=== PATIENT | male | born 1965 | race American Indian/Alaskan Native ===

== ENCOUNTER 2024-02-07 10:56 | Inpatient (IN) ==
[2024-02-07 11:50] LABS: Basophils # (Auto) 0.06 K/mcL (0.00-0.30); Basophils % (Auto) 0.8 % (0.0-2.0); Eosinophils # (Auto) 0.21 K/mcL (0.00-0.70); Eosinophils % (Auto) 2.7 % (0.0-7.0); Hematocrit 39.3 % (40.1-51.0); Hemoglobin 11.9 g/dL (13.7-17.5); Lymphocytes # (Auto) 1.72 K/mcL (1.50-4.80); Lymphocytes % (Auto) 21.7 % (15.5-49.0); Mean Corpuscular HGB Conc 30.3 g/dL (31.0-36.0); Mean Platelet Volume 10.9 fL (8.8-12.5); Monocytes % (Auto) 8.8 % (1.0-12.0); Neutrophils % (Auto) 65.4 % (38.0-78.0); Platelet Count 172 K/mcL (140-440); RBC 4.57 M/mcL (4.63-6.08); Red Cell Distribution Width 14.9 % (11.5-14.5); WBC 7.9 K/mcL (4.5-11.0)
[2024-02-07] MEDS: 0.9 % SODIUM CHLORIDE 1,000 ML IV ONE ×2 (12:00→15:07)
[2024-02-07 13:07] LABS: Appearance,Urine Clear (Clear); Bilirubin,Urine Negative (Negative); Color,Urine Yellow; Culture Indicated,Urine No; Glucose,Urine (UA) 100 mg/dL (Negative); Ketones,Urine Negative (Negative); Leukocyte Esterase,Urine Negative /uL (Negative); Nitrate,Urine Negative (Negative); Protein,Urine Negative (Negative); Specific Gravity,Urine 1.015 (1.000-1.035); Urine Blood Negative ery/mcL (Negative); Urine RBC 1 /hpf (0-3); Urine Squamous Epithelial Cell 0 /hpf (0-4); Urine WBC 1 /hpf (0-4); Urobilinogen,Urine Normal
[2024-02-07 13:50] LABS: ALT/SGPT 23 U/L (<40); AST/SGOT 50 U/L (<40); Albumin 3.6 gm/dL (3.2-5.2); Albumin/Globulin Ratio 1.1 (1.0-2.3); Alkaline Phosphatase 91 U/L (39-117); Bilirubin,Total 0.4 mg/dL (0.1-1.0); Blood Urea Nitrogen 43 mg/dL (6-20); Calcium 8.7 mg/dL (8.6-10.4); Carbon Dioxide 25 mmol/L (22-30); Chloride 98 mmol/L (96-108); Globulin 3.3 gm/dL (2.2-3.7); Glomerular Filtration Rate 32; Glucose 243 mg/dL (70-105); Thyroid Stimulating Hormone 2.32 uIU/mL (0.27-5.01)
[2024-02-07 15:07] LABS: Basophils # (Auto) 0.04 K/mcL (0.00-0.30); Basophils % (Auto) 0.5 % (0.0-2.0); Eosinophils % (Auto) 2.4 % (0.0-7.0); Hematocrit 40.7 % (40.1-51.0); Lymphocytes # (Auto) 1.68 K/mcL (1.50-4.80); Lymphocytes % (Auto) 20.1 % (15.5-49.0); Mean Cell Volume 87.2 fL (80.0-100.0); Mean Corpuscular HGB Conc 29.5 g/dL (31.0-36.0); Mean Platelet Volume 10.5 fL (8.8-12.5); Monocytes # (Auto) 0.76 K/mcL (0.10-0.90); Monocytes % (Auto) 9.1 % (1.0-12.0); Neutrophils % (Auto) 67.3 % (38.0-78.0); Platelet Count 176 K/mcL (140-440); RBC 4.67 M/mcL (4.63-6.08); Red Cell Distribution Width 14.8 % (11.5-14.5); WBC 8.4 K/mcL (4.5-11.0)
[2024-02-07 15:18] LABS: ABG Methemoglobin 0.2 % (0.4-1.5); Total Hemoglobin 12.4 gm/Dl (13.5-16.5); VBG Base Excess 0 (-2-3); VBG HCO3 26.5 mmol/L (24.0-28.0); VBG Oxygen Saturation 84.1 % (40.0-70.0); VBG PCO2 52.9 mmHg (41.0-51.0); VBG PH 7.32 U (7.32-7.42); VBG PO2 61.6 mmHg (25.0-40.0); VBG Total CO2 28.1 mmol/L (25.0-29.0)
[2024-02-07 15:26] LABS: Alcohol, Blood < 10.1 mg/dL; Alcohol,Blood < 0.010 gm/dL (<0.010)
[2024-02-07 15:27] LABS: Blood Urea Nitrogen 42 mg/dL (6-20); Calcium 8.5 mg/dL (8.6-10.4); Carbon Dioxide 27 mmol/L (22-30); Chloride 101 mmol/L (96-108); Glomerular Filtration Rate 36; Glucose 316 mg/dL (70-105)
[2024-02-07] MEDS: INSULIN REGULAR, HUMAN 1 UNIT/0.01 ML UNIT IV ONE (15:44)
[2024-02-07] MEDS: CALCIUM GLUCONATE 9.3 MEQ in DEXTROSE 5% IN WATER 50 ML IV ONE (18:00)
[2024-02-07] MEDS: CALCIUM GLUCONATE 4.65 MEQ/10 ML VIAL IV ONE (18:00)
[2024-02-07] MEDS ORDERED: DEXTROSE 50% 50 ML VIAL IV PRN (18:48)
[2024-02-07] MEDS ORDERED: DEXTROSE 31 GM ORAL.SUSP PO PRN (18:48)
[2024-02-07] MEDS ORDERED: ONDANSETRON 4 MG/2 ML VIAL IV PRN (18:48)
[2024-02-07] MEDS ORDERED: ACETAMINOPHEN 325 MG TABLET PO PRN (18:48)
[2024-02-07] MEDS ORDERED: IPRATROPIUM/ALBUTEROL 3 ML AMPUL.NEB NEB PRN ×2 (18:48→19:45)
[2024-02-07] MEDS: 0.9 % SODIUM CHLORIDE 1,000 ML IV SCH (19:36)
[2024-02-07] MEDS ORDERED: hydrOXYzine 25 MG TABLET PO PRN (19:40)
[2024-02-07] MEDS ORDERED: DICLOFENAC SODIUM 1% TOPICAL PRN (19:40)
[2024-02-07] MEDS ORDERED: ALBUTEROL SULFATE 60 PUFF INHALER IH PRN (19:40)
[2024-02-07] MEDS: INSULIN LISPRO 1 UNIT/0.01 ML UNIT SQ SCH (19:41)
[2024-02-07] MEDS: BACLOFEN 10 MG TABLET PO PRN (20:42)
[2024-02-07] MEDS: HYDROcodone/APAP 10/325MG TABLET PO PRN (20:42)
[2024-02-07] MEDS: FAMOTIDINE 20 MG TABLET PO SCH (20:44)
[2024-02-07] MEDS: MONTELUKAST 10 MG TABLET PO SCH (20:44)
[2024-02-07] MEDS: traZODone HCL 50 MG TABLET PO PRN (20:45)
[2024-02-07] MEDS: FENOFIBRATE 43 MG CAPSULE PO SCH (20:45)
[2024-02-07] MEDS: GABAPENTIN 400 MG CAPSULE PO SCH (20:45)
[2024-02-07] MEDS: morphine 30 MG TAB.SR.12H PO SCH (20:45)
[2024-02-07] MEDS: IPRATROPIUM BROMIDE INH SCH (20:46)
[2024-02-07] MEDS: DOCUSATE SODIUM 100 MG CAPSULE PO SCH (20:48)
[2024-02-07] MEDS: INSULIN GLARGINE, HUMAN 1 UNIT/0.01 ML SQ SCH (20:48)
[2024-02-07] MEDS: LIDOCAINE 5% OINT TUBE 35GM TOPICAL SCH (20:49)
[2024-02-07] MEDS: CLOTRIMAZOLE CRM 1% 1 DOSE TUBE TOPICAL SCH (20:51)
[2024-02-07] MEDS: SENNOSIDES 1 TABLET PO SCH (20:51)
[2024-02-07] MEDS: LIPASE/PROTEASE/AMYLASE 1 CAP CAPSULE PO SCH (20:53)
[2024-02-07] MEDS ORDERED: [UNRECOGNIZED DRUG - OTHER] PO SCH (21:00)
[2024-02-07] MEDS ORDERED: [UNRECOGNIZED DRUG - OTHER] PO SCH (21:00)
[2024-02-07] MEDS ORDERED: OMEGA ACID ETHYL ESTERS PO SCH (21:00)
[2024-02-07] MEDS: ATORVASTATIN 20 MG TABLET PO SCH (21:04)
[2024-02-07] MEDS: HEPARIN 5,000 UNIT/ML VIAL SQ SCH (21:07)
[2024-02-07] MEDS: 0.9 % SODIUM CHLORIDE 10 ML SYRINGE IV SCH (22:27)
[2024-02-07 23:10] LABS: Amphetamine Screen,Urine None detected; Barbiturate Screen,Urine None detected; Benzodiazepines Screen,Urine None detected; Cannabinoid Screen,Urine None detected; Cocaine Screen,Urine None detected; Opiate Screen,Urine Suspect Positive; Oxycodone, Urine Screen None detected; Phencyclidine Screen,Urine None detected
[2024-02-08 06:22] LABS: Basophils # (Auto) 0.04 K/mcL (0.00-0.30); Basophils % (Auto) 0.6 % (0.0-2.0); Eosinophils # (Auto) 0.17 K/mcL (0.00-0.70); Eosinophils % (Auto) 2.5 % (0.0-7.0); Hematocrit 38.2 % (40.1-51.0); Hemoglobin 11.6 g/dL (13.7-17.5); Lymphocytes # (Auto) 1.98 K/mcL (1.50-4.80); Lymphocytes % (Auto) 28.6 % (15.5-49.0); Mean Cell Volume 85.8 fL (80.0-100.0); Mean Corpuscular HGB Conc 30.4 g/dL (31.0-36.0); Mean Platelet Volume 10.6 fL (8.8-12.5); Monocytes # (Auto) 0.57 K/mcL (0.10-0.90); Monocytes % (Auto) 8.2 % (1.0-12.0); Neutrophils % (Auto) 59.4 % (38.0-78.0); Platelet Count 165 K/mcL (140-440); RBC 4.45 M/mcL (4.63-6.08); WBC 6.9 K/mcL (4.5-11.0)
[2024-02-08 06:44] LABS: ALT/SGPT 21 U/L (<40); AST/SGOT 35 U/L (<40); Albumin 3.7 gm/dL (3.2-5.2); Albumin/Globulin Ratio 1.3 (1.0-2.3); Alkaline Phosphatase 84 U/L (39-117); Bilirubin,Total 0.6 mg/dL (0.1-1.0); Blood Urea Nitrogen 38 mg/dL (6-20); Calcium 8.6 mg/dL (8.6-10.4); Carbon Dioxide 30 mmol/L (22-30); Chloride 101 mmol/L (96-108); Globulin 2.9 gm/dL (2.2-3.7); Glomerular Filtration Rate 47; Glucose 399 mg/dL (70-105)
[2024-02-08 07:53] LABS: Estimated Average Glucose(eAG) 183 mg/dL
[2024-02-08] MEDS: DULoxetine 30 MG CAPSULE PO SCH (08:16)
[2024-02-08] MEDS: LORATADINE 10 MG TABLET PO SCH (08:16)
[2024-02-08] MEDS: IRON POLYSACCHARIDE COMPLEX 150 MG CAPSULE PO SCH (08:16)
[2024-02-08] MEDS: DILTIAZEM 240 MG CAP.XL.24H PO SCH (08:16)
[2024-02-08] MEDS: ALOGLIPTIN 6.25 MG PO SCH (08:17)
[2024-02-08] MEDS: MULTIVIT,THER IRON,CA,FA & MIN 1 TABLET PO SCH (08:17)
[2024-02-08] MEDS: CYANOCOBALAMIN (VITAMIN B-12) 500 MCG TABLET PO SCH (08:17)
[2024-02-08] MEDS: BISOPROLOL 5 MG TABLET PO SCH (08:17)
[2024-02-08] MEDS: VITAMIN D3 125 MCG TABLET PO SCH (08:17)
[2024-02-08] MEDS: FLUTICASONE PROPIONATE SPRAY.NAS NS SCH (08:17)
[2024-02-08] MEDS ORDERED: DEXTROSE 50% 50 ML VIAL IV PRN (11:18)
[2024-02-08] MEDS ORDERED: DEXTROSE 31 GM ORAL.SUSP PO PRN (11:18)
[2024-02-08] MEDS: INSULIN LISPRO 1 UNIT/0.01 ML UNIT SQ SCH (11:36)
[2024-02-08] MEDS ORDERED: IPRATROPIUM BROMIDE INH PRN (14:57)
[2024-02-08] MEDS: HEPARIN 5,000 UNIT/ML VIAL SQ SCH (21:15)
[2024-02-09 06:13] LABS: Basophils # (Auto) 0.07 K/mcL (0.00-0.30); Eosinophils # (Auto) 0.24 K/mcL (0.00-0.70); Eosinophils % (Auto) 3.3 % (0.0-7.0); Hematocrit 39.5 % (40.1-51.0); Lymphocytes # (Auto) 2.69 K/mcL (1.50-4.80); Lymphocytes % (Auto) 36.5 % (15.5-49.0); Mean Cell Volume 84.8 fL (80.0-100.0); Mean Corpuscular HGB Conc 30.4 g/dL (31.0-36.0); Mean Platelet Volume 10.3 fL (8.8-12.5); Monocytes # (Auto) 0.74 K/mcL (0.10-0.90); Monocytes % (Auto) 10.1 % (1.0-12.0); Neutrophils % (Auto) 48.4 % (38.0-78.0); Platelet Count 177 K/mcL (140-440); RBC 4.66 M/mcL (4.63-6.08); Red Cell Distribution Width 14.9 % (11.5-14.5); WBC 7.4 K/mcL (4.5-11.0)
[2024-02-09 06:58] LABS: ALT/SGPT 17 U/L (<40); AST/SGOT 33 U/L (<40); Albumin 3.7 gm/dL (3.2-5.2); Albumin/Globulin Ratio 1.1 (1.0-2.3); Alkaline Phosphatase 88 U/L (39-117); Bilirubin,Total 0.5 mg/dL (0.1-1.0); Blood Urea Nitrogen 26 mg/dL (6-20); Calcium 8.9 mg/dL (8.6-10.4); Carbon Dioxide 25 mmol/L (22-30); Chloride 100 mmol/L (96-108); Globulin 3.3 gm/dL (2.2-3.7); Glomerular Filtration Rate 67; Glucose 312 mg/dL (70-105)
[2024-02-09] MEDS: ALOGLIPTIN 25 MG PO SCH (08:48)
[2024-02-09] MEDS: ENOXAPARIN 40 MG/0.4 ML SYRINGE SQ SCH (21:24)
[2024-02-10 06:18] LABS: Basophils # (Auto) 0.04 K/mcL (0.00-0.30); Basophils % (Auto) 0.6 % (0.0-2.0); Eosinophils # (Auto) 0.27 K/mcL (0.00-0.70); Eosinophils % (Auto) 3.9 % (0.0-7.0); Hematocrit 36.4 % (40.1-51.0); Hemoglobin 11.2 g/dL (13.7-17.5); Lymphocytes # (Auto) 2.36 K/mcL (1.50-4.80); Lymphocytes % (Auto) 34.3 % (15.5-49.0); Mean Cell Volume 85.2 fL (80.0-100.0); Mean Corpuscular HGB Conc 30.8 g/dL (31.0-36.0); Mean Platelet Volume 10.5 fL (8.8-12.5); Monocytes # (Auto) 0.56 K/mcL (0.10-0.90); Monocytes % (Auto) 8.1 % (1.0-12.0); Neutrophils % (Auto) 52.5 % (38.0-78.0); Platelet Count 161 K/mcL (140-440); RBC 4.27 M/mcL (4.63-6.08); Red Cell Distribution Width 14.7 % (11.5-14.5); WBC 6.9 K/mcL (4.5-11.0)
[2024-02-10 07:00] LABS: ALT/SGPT 15 U/L (<40); AST/SGOT 29 U/L (<40); Albumin 3.4 gm/dL (3.2-5.2); Albumin/Globulin Ratio 1.1 (1.0-2.3); Alkaline Phosphatase 72 U/L (39-117); Bilirubin,Total 0.4 mg/dL (0.1-1.0); Blood Urea Nitrogen 18 mg/dL (6-20); Calcium 8.6 mg/dL (8.6-10.4); Carbon Dioxide 26 mmol/L (22-30); Chloride 105 mmol/L (96-108); Globulin 3.1 gm/dL (2.2-3.7); Glomerular Filtration Rate 83; Glucose 223 mg/dL (70-105)
[2024-02-14] MEDS ORDERED: ERGOCALCIFEROL (VITAMIN D2) 50,000 UNIT CAPSULE PO SCH (09:00)
[2024-02-14 15:08] LABS: Opiate Screen Positive ng/mL (Cutoff=300)
== END 2024-02-10 15:34 | disposition home or self-care (01) | DRG 640 ==
LOC: MEDSUR 10:56 → ED 10:56 → MEDSUR 18:38
PROVIDERS: ADMIT Internal Medicine; ATTEND Internal Medicine

== ENCOUNTER 2024-05-03 16:16 | Inpatient (IN) ==
[2024-05-03 18:14] LABS: Basophils # (Auto) 0.02 K/mcL (0.00-0.30); Basophils % (Auto) 0.2 % (0.0-2.0); Eosinophils # (Auto) 0.11 K/mcL (0.00-0.70); Hematocrit 38.8 % (40.1-51.0); Lymphocytes # (Auto) 1.49 K/mcL (1.50-4.80); Lymphocytes % (Auto) 13.2 % (15.5-49.0); Mean Cell Volume 83.8 fL (80.0-100.0); Mean Corpuscular HGB Conc 30.9 g/dL (31.0-36.0); Mean Platelet Volume 10.8 fL (8.8-12.5); Monocytes # (Auto) 1.24 K/mcL (0.10-0.90); Neutrophils % (Auto) 74.2 % (38.0-78.0); Platelet Count 180 K/mcL (140-440); RBC 4.63 M/mcL (4.63-6.08); Red Cell Distribution Width 15.1 % (11.5-14.5); WBC 11.3 K/mcL (4.5-11.0)
[2024-05-03 18:41] LABS: ALT/SGPT 14 U/L (<40); AST/SGOT 37 U/L (<40); Albumin 3.6 gm/dL (3.2-5.2); Albumin/Globulin Ratio 0.9 (1.0-2.3); Alkaline Phosphatase 97 U/L (39-117); Bilirubin,Total 0.4 mg/dL (0.1-1.0); Blood Urea Nitrogen 64 mg/dL (6-20); Calcium 11.1 mg/dL (8.6-10.4); Carbon Dioxide 22 mmol/L (22-30); Chloride 93 mmol/L (96-108); Globulin 3.8 gm/dL (2.2-3.7); Glomerular Filtration Rate 12; Glucose 272 mg/dL (70-105); Potassium 4.4 mmol/L (3.3-5.1); Sodium 131 mmol/L (133-145)
[2024-05-03 18:49] LABS: Free T4 (Free Thyroxine) 1.51 ng/dL (0.93-1.70)
[2024-05-03] MEDS: 0.9 % SODIUM CHLORIDE 1,000 ML IV SCH (19:38)
[2024-05-03 21:21] LABS: ABG Methemoglobin 0.3 % (0.4-1.5); Total Hemoglobin 12.3 gm/Dl (13.5-16.5); VBG Base Excess -2 (-2-3); VBG HCO3 22.9 mmol/L (24.0-28.0); VBG Oxygen Saturation 92.5 % (40.0-70.0); VBG PH 7.37 U (7.32-7.42); VBG PO2 120.1 mmHg (25.0-40.0); VBG Total CO2 24.2 mmol/L (25.0-29.0)
[2024-05-03] MEDS: BENZOCAINE ONE 20% 1 SPRAY TOPICAL (22:34)
[2024-05-03] MEDS ORDERED: DEXTROSE 50% 50 ML VIAL IV PRN (23:30)
[2024-05-03] MEDS ORDERED: MAGNESIUM SULFATE 2 GM/50 ML BAG IV PRN (23:30)
[2024-05-03] MEDS ORDERED: POLYETHYLENE GLYCOL 3350 17 GM PACKET PO PRN (23:30)
[2024-05-03] MEDS ORDERED: ACETAMINOPHEN 325 MG TABLET PO PRN (23:30)
[2024-05-03] MEDS ORDERED: POTASSIUM CHLORIDE 40 MEQ in DEXTROSE 5% IN WATER 500 ML IV PRN (23:30)
[2024-05-03] MEDS ORDERED: POTASSIUM CHLORIDE 20 MEQ TABLET PO PRN ×2 (23:30)
[2024-05-03] MEDS ORDERED: ONDANSETRON 4 MG/2 ML VIAL IV PRN (23:30)
[2024-05-03] MEDS ORDERED: DEXTROSE 31 GM ORAL.SUSP PO PRN (23:30)
[2024-05-03] MEDS ORDERED: SENNOSIDES 1 TABLET PO PRN (23:30)
[2024-05-04 00:06] LABS: Hemoglobin A1C 8.4 % Hgb (4.0-6.0)
[2024-05-04] MEDS: 0.9 % SODIUM CHLORIDE 1,000 ML IV SCH (00:09)
[2024-05-04] MEDS: cefTRIAXone 2 GM in DEXTROSE 5% IN WATER 50 ML IV SCH (00:09)
[2024-05-04] MEDS: 0.9 % SODIUM CHLORIDE 10 ML SYRINGE IV SCH (00:12)
[2024-05-04] MEDS: cefTRIAXone 2 GM VIAL ONE (00:22)
[2024-05-04 00:53] LABS: Appearance,Urine Clear (Clear); Bilirubin,Urine Negative (Negative); Color,Urine Yellow; Culture Indicated,Urine No; Glucose,Urine (UA) Negative (Negative); Ketones,Urine Negative (Negative); Leukocyte Esterase,Urine Negative /uL (Negative); Nitrate,Urine Negative (Negative); Other Crystals,Urine Few /hpf; PH,Urine 5.5 (5.0-9.0); Protein,Urine Negative (Negative); Urine Blood Trace-intact ery/mcL (Negative); Urine Hyaline Cast 34 /lph (0-2); Urine RBC 3 /hpf (0-3); Urine Squamous Epithelial Cell 1 /hpf (0-4); Urine WBC 1 /hpf (0-4); Urobilinogen,Urine Normal
[2024-05-04] MEDS: HALOPERIDOL LACTATE 5 MG/ML VIAL IV ONE (05:39)
[2024-05-04] MEDS: LORazepam 2 MG/ML VIAL IV PRN (05:56)
[2024-05-04] MEDS: LORazepam 2 MG/ML VIAL ONE (05:57)
[2024-05-04] MEDS: HALOPERIDOL LACTATE 5 MG/ML VIAL ONE (05:57)
[2024-05-04] MEDS: DEXMEDETOMIDINE 400 MCG in PREMIX 1 BAG IV SCH (06:04)
[2024-05-04] MEDS: DEXMEDETOMIDINE 100 ML IV ONE (06:08)
[2024-05-04] MEDS: VANCOMYCIN PER PHARMACY IV ONE (06:23)
[2024-05-04] MEDS: INSULIN LISPRO 1 UNIT/0.01 ML UNIT SQ SCH (06:53)
[2024-05-04 07:33] LABS: Basophils # (Auto) 0.02 K/mcL (0.00-0.30); Basophils % (Auto) 0.2 % (0.0-2.0); Eosinophils # (Auto) 0.21 K/mcL (0.00-0.70); Eosinophils % (Auto) 2.5 % (0.0-7.0); Hematocrit 36.8 % (40.1-51.0); Hemoglobin 11.7 g/dL (13.7-17.5); Lymphocytes # (Auto) 1.79 K/mcL (1.50-4.80); Lymphocytes % (Auto) 21.4 % (15.5-49.0); Mean Cell Volume 81.2 fL (80.0-100.0); Mean Corpuscular HGB Conc 31.8 g/dL (31.0-36.0); Mean Platelet Volume 11.2 fL (8.8-12.5); Monocytes # (Auto) 0.89 K/mcL (0.10-0.90); Monocytes % (Auto) 10.7 % (1.0-12.0); Neutrophils % (Auto) 64.7 % (38.0-78.0); Platelet Count 183 K/mcL (140-440); RBC 4.53 M/mcL (4.63-6.08); WBC 8.4 K/mcL (4.5-11.0)
[2024-05-04] MEDS: 0.9 % SODIUM CHLORIDE 500 ML IV ONE ×2 (09:09→10:59)
[2024-05-04] MEDS: PANTOPRAZOLE 40 MG VIAL IV SCH (10:05)
[2024-05-04] MEDS: ENOXAPARIN 40 MG/0.4 ML SYRINGE SQ SCH (10:05)
[2024-05-04 10:30] LABS: ALT/SGPT 13 U/L (<40); AST/SGOT 49 U/L (<40); Albumin 3.1 gm/dL (3.2-5.2); Alkaline Phosphatase 89 U/L (39-117); Bilirubin,Direct 0.2 mg/dL (<0.3); Bilirubin,Total 0.3 mg/dL (0.1-1.0); Blood Urea Nitrogen 75 mg/dL (6-20); Carbon Dioxide 23 mmol/L (22-30); Chloride 100 mmol/L (96-108); Globulin 3.2 gm/dL (2.2-3.7); Glomerular Filtration Rate 11; Glucose 298 mg/dL (70-105); Lactate Dehydrogenase 173 U/L (135-225); Phosphorous 8.6 mg/dL (2.5-4.5); Sodium 137 mmol/L (133-145); Triglycerides 227 mg/dL (<150); Uric Acid 10.6 mg/dL (2.5-8.0)
[2024-05-04] MEDS: LIPASE/PROTEASE/AMYLASE 1 CAP CAPSULE PO SCH (11:54)
[2024-05-04] MEDS: DOCUSATE SODIUM 100 MG CAPSULE PO SCH (11:55)
[2024-05-04] MEDS: CLOTRIMAZOLE CRM 1% 1 DOSE TUBE TOPICAL SCH (12:05)
[2024-05-04] MEDS: BETAMETHASONE VAL 0.1% TOPICAL SCH (12:06)
[2024-05-04] MEDS: CLOTRIMAZOLE/BETAMETHASONE DIP 45 GM CREAM..G. TP SCH (12:17)
[2024-05-04] MEDS: BISOPROLOL FUMARATE 10 MG PO SCH (12:18)
[2024-05-04 15:18] LABS: ABG Methemoglobin 0.3 % (0.4-1.5); Total Hemoglobin 10.9 gm/Dl (13.5-16.5); VBG Base Excess -4 (-2-3); VBG HCO3 22.4 mmol/L (24.0-28.0); VBG Oxygen Saturation 88.3 % (40.0-70.0); VBG PCO2 48.2 mmHg (41.0-51.0); VBG PH 7.29 U (7.32-7.42); VBG PO2 73.5 mmHg (25.0-40.0); VBG Total CO2 23.9 mmol/L (25.0-29.0)
[2024-05-04] MEDS ORDERED: ROSUVASTATIN 10 MG TABLET PO SCH (21:00)
[2024-05-04] MEDS ORDERED: TAMSULOSIN 0.4 MG CAPSULE PO SCH (21:00)
[2024-05-04] MEDS ORDERED: ENOXAPARIN 60 MG/0.6 ML SYRINGE SQ SCH (21:00)
[2024-05-04] MEDS ORDERED: RABEPRAZOLE 20 MG PO SCH (21:00)
[2024-05-04] MEDS ORDERED: [UNRECOGNIZED DRUG - OTHER] PO SCH (21:00)
[2024-05-04] MEDS: QUEtiapine 25 MG TABLET PO SCH (21:11)
[2024-05-04] MEDS: ATORVASTATIN 20 MG TABLET PO SCH (21:11)
[2024-05-04] MEDS: TAMSULOSIN 0.4 MG CAPSULE PO SCH (21:11)
[2024-05-05] MEDS: HEPARIN 5,000 UNIT/ML VIAL SQ SCH (05:17)
[2024-05-05 06:08] LABS: ALT/SGPT 18 U/L (<40); AST/SGOT 57 U/L (<40); Albumin 3.2 gm/dL (3.2-5.2); Albumin/Globulin Ratio 0.9 (1.0-2.3); Alkaline Phosphatase 76 U/L (39-117); Bilirubin,Direct 0.2 mg/dL (<0.3); Bilirubin,Total 0.3 mg/dL (0.1-1.0); Blood Urea Nitrogen 75 mg/dL (6-20); Calcium 9.2 mg/dL (8.6-10.4); Carbon Dioxide 20 mmol/L (22-30); Chloride 104 mmol/L (96-108); Globulin 3.5 gm/dL (2.2-3.7); Glomerular Filtration Rate 15; Glucose 353 mg/dL (70-105); Lactate Dehydrogenase 181 U/L (135-225); Phosphorous 5.5 mg/dL (2.5-4.5); Potassium 4.9 mmol/L (3.3-5.1); Sodium 138 mmol/L (133-145); Triglycerides 228 mg/dL (<150); Uric Acid 10.5 mg/dL (2.5-8.0)
[2024-05-05] MEDS: 0.9 % SODIUM CHLORIDE 1,000 ML IV SCH (08:18)
[2024-05-05] MEDS: BISOPROLOL 5 MG TABLET PO SCH (08:22)
[2024-05-05] MEDS: INSULIN GLARGINE, HUMAN 1 UNIT/0.01 ML SQ SCH (08:53)
[2024-05-05] MEDS: INSULIN LISPRO 1 UNIT/0.01 ML UNIT SQ SCH (11:31)
[2024-05-05] MEDS: GABAPENTIN 100 MG CAPSULE PO SCH (14:44)
[2024-05-05] MEDS: morphine 15 MG TAB.SR.12H PO SCH (14:44)
[2024-05-05] MEDS: HYDROcodone/APAP 10/325MG TABLET PO PRN (14:47)
[2024-05-05] MEDS: BACLOFEN 10 MG TABLET PO PRN (18:49)
[2024-05-05] MEDS: ALBUTEROL SULFATE 60 PUFF INHALER INH PRN (19:05)
[2024-05-05] MEDS: cefTRIAXone 2 GM VIAL ONE (23:49)
[2024-05-06 06:35] LABS: ALT/SGPT 20 U/L (<40); AST/SGOT 55 U/L (<40); Albumin 2.9 gm/dL (3.2-5.2); Albumin/Globulin Ratio 0.7 (1.0-2.3); Alkaline Phosphatase 70 U/L (39-117); Bilirubin,Direct 0.2 mg/dL (<0.3); Bilirubin,Total 0.5 mg/dL (0.1-1.0); Blood Urea Nitrogen 38 mg/dL (6-20); Calcium 9.1 mg/dL (8.6-10.4); Carbon Dioxide 19 mmol/L (22-30); Chloride 104 mmol/L (96-108); Globulin 3.9 gm/dL (2.2-3.7); Glomerular Filtration Rate 51; Glucose 307 mg/dL (70-105); Lactate Dehydrogenase 267 U/L (135-225); Phosphorous 1.8 mg/dL (2.5-4.5); Potassium 5.3 mmol/L (3.3-5.1); Sodium 136 mmol/L (133-145); Triglycerides 269 mg/dL (<150); Uric Acid 6.9 mg/dL (2.5-8.0)
[2024-05-06 07:38] LABS: Basophils # (Auto) 0.02 K/mcL (0.00-0.30); Basophils % (Auto) 0.3 % (0.0-2.0); Eosinophils # (Auto) 0.25 K/mcL (0.00-0.70); Eosinophils % (Auto) 3.3 % (0.0-7.0); Hematocrit 38.1 % (40.1-51.0); Hemoglobin 11.7 g/dL (13.7-17.5); Lymphocytes # (Auto) 1.62 K/mcL (1.50-4.80); Lymphocytes % (Auto) 21.3 % (15.5-49.0); Mean Cell Volume 83.7 fL (80.0-100.0); Mean Corpuscular HGB Conc 30.7 g/dL (31.0-36.0); Mean Platelet Volume 10.3 fL (8.8-12.5); Monocytes % (Auto) 7.9 % (1.0-12.0); Neutrophils % (Auto) 66.5 % (38.0-78.0); Platelet Count 215 K/mcL (140-440); RBC 4.55 M/mcL (4.63-6.08); Red Cell Distribution Width 14.5 % (11.5-14.5); WBC 7.6 K/mcL (4.5-11.0)
[2024-05-06] MEDS: SODIUM PHOSPHATE 15 MMOL in DEXTROSE 5% IN WATER 250 ML IV ONE (07:42)
[2024-05-06] MEDS: FEXOFENADINE 180 MG TABLET PO ONE (11:48)
[2024-05-06 14:32] LABS: ALT/SGPT 15 U/L (<40); AST/SGOT 46 U/L (<40); Albumin 3.5 gm/dL (3.2-5.2); Albumin/Globulin Ratio 0.9 (1.0-2.3); Alkaline Phosphatase 75 U/L (39-117); Bilirubin,Direct 0.3 mg/dL (<0.3); Bilirubin,Total 0.4 mg/dL (0.1-1.0); Blood Urea Nitrogen 30 mg/dL (6-20); Calcium 9.3 mg/dL (8.6-10.4); Carbon Dioxide 24 mmol/L (22-30); Chloride 101 mmol/L (96-108); Globulin 3.7 gm/dL (2.2-3.7); Glomerular Filtration Rate 60; Glucose 370 mg/dL (70-105); Lactate Dehydrogenase 193 U/L (135-225); Phosphorous 2.1 mg/dL (2.5-4.5); Potassium 4.7 mmol/L (3.3-5.1); Sodium 136 mmol/L (133-145); Triglycerides 269 mg/dL (<150); Uric Acid 6.2 mg/dL (2.5-8.0)
[2024-05-06] MEDS: INSULIN GLARGINE, HUMAN 1 UNIT/0.01 ML SQ ONE (17:12)
[2024-05-06] MEDS: INSULIN LISPRO 1 UNIT/0.01 ML UNIT SQ ONE (17:13)
[2024-05-06] MEDS: INSULIN LISPRO 1 UNIT/0.01 ML UNIT SQ SCH (17:13)
[2024-05-06] MEDS: FLUTICASONE/SALMETEROL 250/50 INHALER #14 INH SCH (21:04)
[2024-05-06] MEDS: FENOFIBRATE 43 MG CAPSULE PO SCH (21:05)
[2024-05-06] MEDS: CEFDINIR 300 MG CAPSULE PO SCH (21:05)
[2024-05-06] MEDS: RABEPRAZOLE 20 MG PO SCH (21:06)
[2024-05-06] MEDS: DULoxetine 30 MG CAPSULE PO SCH (21:06)
[2024-05-07] MEDS: hydrALAZINE 20 MG/ML VIAL IV PRN (02:04)
[2024-05-07] MEDS: IPRATROPIUM/ALBUTEROL 3 ML AMPUL.NEB NEB PRN (04:38)
[2024-05-07 06:23] LABS: Basophils # (Auto) 0.04 K/mcL (0.00-0.30); Basophils % (Auto) 0.6 % (0.0-2.0); Eosinophils # (Auto) 0.19 K/mcL (0.00-0.70); Hematocrit 35.6 % (40.1-51.0); Hemoglobin 11.3 g/dL (13.7-17.5); Lymphocytes % (Auto) 25.4 % (15.5-49.0); Mean Cell Volume 81.7 fL (80.0-100.0); Mean Corpuscular HGB Conc 31.7 g/dL (31.0-36.0); Mean Platelet Volume 10.1 fL (8.8-12.5); Monocytes # (Auto) 0.48 K/mcL (0.10-0.90); Monocytes % (Auto) 7.6 % (1.0-12.0); Neutrophils % (Auto) 62.4 % (38.0-78.0); Platelet Count 218 K/mcL (140-440); RBC 4.36 M/mcL (4.63-6.08); Red Cell Distribution Width 14.4 % (11.5-14.5); WBC 6.3 K/mcL (4.5-11.0)
[2024-05-07 06:57] LABS: ALT/SGPT 17 U/L (<40); AST/SGOT 39 U/L (<40); Albumin 3.2 gm/dL (3.2-5.2); Albumin/Globulin Ratio 0.9 (1.0-2.3); Alkaline Phosphatase 68 U/L (39-117); Bilirubin,Direct 0.2 mg/dL (<0.3); Bilirubin,Total 0.4 mg/dL (0.1-1.0); Blood Urea Nitrogen 21 mg/dL (6-20); Calcium 9.1 mg/dL (8.6-10.4); Carbon Dioxide 19 mmol/L (22-30); Chloride 105 mmol/L (96-108); Globulin 3.5 gm/dL (2.2-3.7); Glomerular Filtration Rate 83; Glucose 258 mg/dL (70-105); Lactate Dehydrogenase 204 U/L (135-225); Phosphorous 1.6 mg/dL (2.5-4.5); Sodium 139 mmol/L (133-145); Triglycerides 223 mg/dL (<150); Uric Acid 5.3 mg/dL (2.5-8.0)
[2024-05-07] MEDS ORDERED: DEXMEDETOMIDINE 400 MCG in PREMIX 1 BAG IV PRN (07:31)
[2024-05-07] MEDS ORDERED: FEXOFENADINE 180 MG TABLET PO SCH (09:00)
[2024-05-07] MEDS ORDERED: INSULIN GLARGINE, HUMAN 1 UNIT/0.01 ML SQ SCH (09:00)
[2024-05-07] MEDS: FEXOFENADINE 180 MG TABLET PO SCH (09:05)
[2024-05-07] MEDS: SODIUM PHOSPHATE 30 MMOL in DEXTROSE 5% IN WATER 500 ML IV ONE (09:10)
[2024-05-07] MEDS: INSULIN GLARGINE, HUMAN 1 UNIT/0.01 ML SQ SCH (09:13)
[2024-05-07] MEDS: RABEPRAZOLE 20 MG PO SCH (09:14)
[2024-05-07] MEDS: INSULIN LISPRO 1 UNIT/0.01 ML UNIT SQ SCH (11:56)
[2024-05-07] MEDS: ENOXAPARIN 40 MG/0.4 ML SYRINGE SQ SCH (20:22)
[2024-05-08 06:05] LABS: Basophils # (Auto) 0.04 K/mcL (0.00-0.30); Basophils % (Auto) 0.5 % (0.0-2.0); Eosinophils # (Auto) 0.37 K/mcL (0.00-0.70); Eosinophils % (Auto) 4.7 % (0.0-7.0); Hematocrit 36.3 % (40.1-51.0); Hemoglobin 11.4 g/dL (13.7-17.5); Lymphocytes # (Auto) 1.75 K/mcL (1.50-4.80); Lymphocytes % (Auto) 22.2 % (15.5-49.0); Mean Cell Volume 82.1 fL (80.0-100.0); Mean Corpuscular HGB Conc 31.4 g/dL (31.0-36.0); Mean Platelet Volume 10.1 fL (8.8-12.5); Monocytes # (Auto) 0.62 K/mcL (0.10-0.90); Monocytes % (Auto) 7.9 % (1.0-12.0); Neutrophils % (Auto) 63.8 % (38.0-78.0); Platelet Count 229 K/mcL (140-440); RBC 4.42 M/mcL (4.63-6.08); Red Cell Distribution Width 14.6 % (11.5-14.5); WBC 7.9 K/mcL (4.5-11.0)
[2024-05-08 06:21] LABS: ALT/SGPT 15 U/L (<40); AST/SGOT 36 U/L (<40); Albumin 3.3 gm/dL (3.2-5.2); Alkaline Phosphatase 65 U/L (39-117); Bilirubin,Direct 0.2 mg/dL (<0.3); Bilirubin,Total 0.4 mg/dL (0.1-1.0); Blood Urea Nitrogen 16 mg/dL (6-20); Carbon Dioxide 19 mmol/L (22-30); Chloride 107 mmol/L (96-108); Globulin 3.4 gm/dL (2.2-3.7); Glomerular Filtration Rate 94; Glucose 198 mg/dL (70-105); Lactate Dehydrogenase 207 U/L (135-225); Phosphorous 2.6 mg/dL (2.5-4.5); Potassium 3.9 mmol/L (3.3-5.1); Sodium 138 mmol/L (133-145); Triglycerides 200 mg/dL (<150); Uric Acid 5.1 mg/dL (2.5-8.0)
[2024-05-08] MEDS ORDERED: morphine 30 MG TAB.SR.12H PO SCH (14:00)
== END 2024-05-08 13:20 | DRG 682 ==
LOC: ED 16:16 → ICU 23:15
PROVIDERS: ADMIT Internal Medicine; ATTEND Student in an Organized Health Care Education/Training Program